=== PATIENT | female | born 1965 | race Caucasian/White ===

== ENCOUNTER 2018-10-14 00:08 | Emergency (ER) | payer MEDICAID ==
[~2018-10-14] VITALS: Ht 154.9 cm; Wt 73.3 kg
[2018-10-14 00:12] VITALS: Ht 154.9 cm; Wt 73.3 kg
[2018-10-14] MEDS ORDERED: DEXAMETHASONE 10 MG/ML 1 ML INJ IM STA (00:57)
[2018-10-14] MEDS ORDERED: ALBUTEROL 0.5% (NEB) 2.5 MG/0.5 ML AMP INH STA (00:57)
[2018-10-14] MEDS ORDERED: IPRATROPIUM (NEB) 0.5 MG/2.5 ML AMP INH STA (00:57)
[2018-10-14] MEDS ORDERED: PRED20TA PO (02:28)
[2018-10-14] MEDS ORDERED: BENZ200C68 PO (02:28)
[2018-10-14] MEDS ORDERED: ALBU18HF INHALATION (02:28)
[2018-10-14 02:46] VITALS: BP 132/72; PULSE 70; RESP 20
--- NOTE | 2018-10-14 03:47 | ERD ---
ER Documentation Chief Complaint Chief Complaint SOB & ran out of her inhaler; hx asthma HPI 53-year-old female With past medical history of type 2 diabetes and asthma presents to the emergency department complaining of cough and intermittent shortness of breath due to asthma for the past 3 weeks. Cough is productive. Symptoms are moderate in severity. She had Ventolin inhaler however she ran out. She denies any chest pain, fevers, chills, or other symptoms at this time. ROS All systems reviewed and are negative except as per history of present illness. Medications Home Meds Active Scripts Benzonatate* (Benzonatate*) 200 Mg Capsule, 200 MG PO TID PRN for COUGH, #15 CAP Prov:LEORA RODRIGUEZ PA-C 10/14/18 Albuterol Sulfate* (Ventolin HFA*) 18 Gm Hfa.aer.ad, 2 PUFF INHALATION Q4H, #1 INHALER Prov:LEORA RODRIGUEZ PA-C 10/14/18 Prednisone* (Prednisone*) 20 Mg Tab, 40 MG PO DAILY for 4 Days, TAB Prov:LEORA RODRIGUEZ PA-C 10/14/18 Allergies Allergies: Coded Allergies: No Known Allergy (Unverified , 03/05/12) PMhx/Soc History of Surgery: No Anesthesia Reaction: No Hx Neurological Disorder: No Hx Respiratory Disorders: Yes (Asthma) Hx Cardiac Disorders: No Hx Psychiatric Problems: No Hx Miscellaneous Medical Probl: No (Diabetes) Hx Alcohol Use: No Hx Substance Use: No Hx Tobacco Use: No Smoking Status: Never smoker FmHx Family History: No diabetes Physical Exam Vitals Vital Signs Date Temp Pulse Resp B/P (MAP) Pulse Ox O2 O2 Flow FiO2 Time Delivery Rate 10/14/18 97.6 70 20 132/72 94 Room Air 02:46 (92) 10/14/18 10 01:30 10/14/18 71 20 97 71 01:08 10/14/18 97.0 69 22 154/96 97 00:12 (115) Physical Exam Const: No acute distress Head: Atraumatic Eyes: Normal Conjunctiva ENT: Normal External Ears, Nose and Mouth. Neck: Full range of motion. No meningismus. Resp: No respiratory distress. Inspiratory and expiratory wheezing noted to all lung cannon. No crackles. Cardio: Regular rate and rhythm, no murmurs Abd: Soft, non tender, non distended. Normal bowel sounds Skin: No petechiae or rashes Back: No midline or flank tenderness Ext: No cyanosis, or edema Neur: Awake and alert Psych: Normal Mood and Affect Results 24 hrs Current Medications Medications Dose Sig/Eren Start Time Status Last (Trade) Ordered Route PRN Stop Time Admin Dose Reason Admin Albuterol 10 mg ONCE STAT 10/14/18 DC 10/14/18 (Proventil INH 00:57 01:07 0.5% (Neb)) 10/14/18 00:58 Ipratropium 1 mg ONCE STAT 10/14/18 DC 10/14/18 [place] IN[facility] 00:57 01:07 (Atrovent 10/14/18 00:58 0.02% (Neb)) 10 mg ONCE STAT 10/14/18 DC 10/14/18 Dexamethasone IM 00:57 01:05 (Decadron) 10/14/18 00:58 [place] [address] Radiology Main Line: [phone] DIAGNOSTIC IMAGING REPORT Patient: BRAN RESENDEZ : 1965 Age: 53 Sex: F MR #: [id number] DOS: 10/14/18 0057 Ordering MD: LEORA RODRIGUEZ PA-C Location: [facility] Room/Bed: PROCEDURE: Chest. CLINICAL INDICATION: Asthma exacerbation. TECHNIQUE: Single frontal view of the chest was obtained. COMPARISON: None. FINDINGS: The cardiac silhouette is within normal limits. The aortic arch is unremarkable. There is no focal consolidation, vascular congestion or pleural effusion. There is no pneumothorax. IMPRESSION: No evidence for active cardiopulmonary disease. .Bam Palacio MD, MD Date Time Electronically viewed and signed by .Bam Palacio MD, MD on 10/14/2018 01:22 .T/ CC: LEORA RODRIGUEZ PA-C [id number] Procedures/MDM 53-year-old female presents with signs and symptoms most consistent with asthma with acute exacerbation. Patient was administered albuterol/ipratropium breathing treatment as well as Decadron with significant improvement of her symptoms. Patient's respiratory status has stabilized while in the department and is appropriate for outpatient work up. Exam and work up not consistent w/ impending respiratory failure or cardiovascular collapse. Departure Diagnosis: Primary Impression: Asthma exacerbation Condition: Fair Patient Instructions: Asthma, Acute (Adult) [facility] Usted se dejesus hecho un examen mdico de control que le indica que no est en damian condicin que requiera tratamiento urgente en el Departamento de Emergencia. Un estudio ms profundo y el tratamiento de daly condicin pueden esperar sin ningn riesgo hasta que usted sea atendida/o en el consultorio de daly mdico o damian clnica. Es responsabilidad suya arreglar damian jose raul para el seguimiento del rupal. MANEJO DE CONDICIONES NO URGENTES EN EL FUTURO 1) Si usted tiene un mdico de atencin primaria: Usted debera llamar a daly mdico de atencin primaria antes de venir al departamento de emergencia. Despus de las horas de consultorio, daly doctor o daly asociado/a est disponible por telfono. El mdico o enfermero de reyna en el servicio telefnico puede asesorarle por fredis medio para atender el problema, o rupal contrario se puede programar damian jose raul. 2) Si usted no tiene un mdico de atencin primaria: Llame al mdico o clnica de referencia que aparece abajo jaylin las horas de consultorio para hacer damian jose raul para que le vean. CLINICAS: [facility] [phone] [address] [facility] 928 [phone] [address] [facility] 144 [phone] [address] [facility] [phone] [place] [address] [phone] [facility] [phone] [address] Additional Instructions: Llame al doctor MAANA y carolyn damian JOSE RAUL PARA DENTRO DE 1-2 [place].Dgale a la secretaria que nosotros le instruimos hacer esta jose raul.Avise o llame si daly co ndicin se empeora antes de la jose raul. Regresa aqui si peor o no mejor. LEORA RODRIGUEZ PA-C Oct 14, 2018 03:47
== END 2018-10-14 02:48 | disposition home or self-care (01) ==
LOC: FTE 00:08
DX: J45.901 Unspecified asthma with (acute) exacerbation (principal); E11.9 Type 2 diabetes mellitus without complications
CPT/HCPCS: 71045; 94644; 96372; J1100; Z7502; Z7610